=== PATIENT | female | born 1990 | race Caucasian/White ===

== ENCOUNTER 2021-08-01 22:56 | Emergency (ER) | payer BC | END 2021-08-02 00:15 | disposition home or self-care (01) | LOC: JD.ED 22:56 | DX: S93.402A Sprain of unspecified ligament of left ankle, initial encounter (principal); Z87.891 Personal history of nicotine dependence; W07.XXXA Fall from chair, initial encounter | CPT/HCPCS: 29515; 73610-26-LT; 73610-LT; 99283; 99283-25 ==